=== PATIENT | male | born 1970 | race Caucasian/White ===

== ENCOUNTER 2024-05-09 10:41 | Outpatient (REF) | payer SELFPAY ==
[2024-05-09 09:50] LABS: ALT 113 U/L (16-63); AST 45 U/L (15-37); Albumin 3.3 g/dL (3.4-5.0); Alkaline Phosphatase 356 U/L (46-116); Anion Gap 6.8 mmol/L (3-11); BUN 12 mg/dL (7-18); CO2 32.2 mmol/L (21.0-32.0); CREATININE 0.6 mg/dL (0.70-1.30); Chloride 103 mmol/L (98-107); Estimated GFR 114.71 (mL/min/1.73m2); Glucose 88 mg/dL (74-106); Potassium 4.5 mmol/L (3.5-5.1); Sodium 142 mmol/L (136-145); Total Protein 6.8 g/dL (6.4-8.2)
== END 2024-05-09 10:42 | disposition home or self-care (01) ==
LOC: LBN 10:41
PROVIDERS: Visit Provider Family Medicine
DX: G12.21 Amyotrophic lateral sclerosis (principal); R79.89 Other specified abnormal findings of blood chemistry
CPT/HCPCS: 80053

== ENCOUNTER 2024-07-31 21:17 | Outpatient (REF) | payer SELFPAY ==
[2024-07-31 13:17] LABS: ALT 47 U/L (16-63); AST 28 U/L (15-37); Albumin 3.5 g/dL (3.4-5.0); Alkaline Phosphatase 202 U/L (46-116); Anion Gap 7.4 mmol/L (3-11); BUN 11 mg/dL (7-18); Bilirubin, Total 0.51 mg/dL (0.2-1.0); CO2 30.6 mmol/L (21.0-32.0); CREATININE 0.7 mg/dL (0.70-1.30); Calcium 9.4 mg/dL (8.5-10.1); Chloride 104 mmol/L (98-107); Glucose 87 mg/dL (74-106); Potassium 4.1 mmol/L (3.5-5.1); Sodium 142 mmol/L (136-145); Total Protein 6.7 g/dL (6.4-8.2)
== END 2024-07-31 21:18 | disposition home or self-care (01) ==
LOC: LBN 21:17
PROVIDERS: Visit Provider Family Medicine
DX: G12.21 Amyotrophic lateral sclerosis (principal)
CPT/HCPCS: 80053

== ENCOUNTER 2025-01-10 10:55 | Inpatient (IN) | payer OTHER, SELFPAY ==
[2025-01-10 13:05] VITALS: BP 131/78; PULSE 99; RESP 14; TEMP 36.7; O2SAT 99
--- NOTE | 2025-01-10 14:07 | W.PM.HP.N ---
Date of service: 01/10/25 Time of Service: 12:45 Assessment and Plan Assessment and plan (1) Bedbound: Status: Acute Assessment and plan: As of 01/09, asked him to stay in bed to offload pressure off of left buttock If OOB, needs to be moved by Tevin. For now, bedbound will make it easier for his skin to heal. (2) Nonverbal: Status: Chronic Assessment and plan: Very intelligent. Has some preformed phrases that he can play for new people to explain his illness/condition/preferences, etc. ALS has made it impossible for him to speak for at least 3 years now. Maybe longer. (3) Drooling: Status: Acute Assessment and plan: Chronic problem. Shirt gets wet. Has glycopyrollate ordered prn. (4) Anxiety: Status: Chronic Assessment and plan: Is on lexapro for both anxiety and depression. Tried to wean off but could not due to worsening mood. Mood usually pretty well controlled. (5) Pressure ulcer: Status: Acute Assessment and plan: Present for about 2-3 weeks. Family tried to treat it on their own at home. Sudden worsening on 01/08. With offloading of weight, may be able to heal on its own. If he had continued to sit at his computer for 9-10 hrs per day, he would be in severe trouble. (6) Hospice care: Status: Acute Assessment and plan: He is currently hear for respite but is hovering over symptom management. He looked better today than he looked yesterday. He is still at risk for sudden decompensation. Given that, I have asked for IV to be placed in case we need to administer IV abx, etc. Will check his CBCD to ensure that we are not approaching infection. (7) ALS (amyotrophic lateral sclerosis): Status: Acute Assessment and plan: Reason for his being on hospice. He has outlived his neurologists prognosis of 6 months by almost 2 years. Most people with his level of ALS burden within the next 6 months Continue hospice care. (8) Incontinent of feces: Status: Acute Assessment and plan: Risk of worsening infection. Usually stools q 3-4 days. Stooled yesterday. (9) Incontinent of urine: Status: Acute Assessment and plan: Has condom cath in place. PREFERS NO ESPINAL if possible. History of Present Illness History of Present Illness Chief Complaint: pressure ulcer rapid progression, ALS Narrative: Scooter has been on hospice for his ALS x 2.5 years. He came on hospice after being hospitalized in [place] for urosepsis and then spending 3 weeks in a snf. His Lisy Hollingsworth refused to have him come home after his acute rehab days were up. Instead of staying in a SNF on alf care, he chose to move into his mother and stepfather's home in [place]. His mom is in her early 80s and his step dad is almost 80. They are his primary caregivers, though they have an hour or two of help on most days in the am. Scooter continues to work in his [employer]. 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 He types very slowly, about 5 words per minute max but they keep him on. He loves to work and to provide for his children and estranged . Unfortunately, this means he spends hours per day in a computer chair. He has lost muscle and fat off of his buttocks. He started developing pressure areas about 4 weeks ago. He now has a distinct 1.2 cm oval stage 2 ulcer but as of this week he now has other larger areas of compromised skin that look as if they have deep tissue damage underneath. He tried various cushions and towels and other padding. But his skin continued to worsen. I saw him yesterday at home and was quite worried. I tried to convince him to come to the hospital then, but he wasn't ready to do so. He did agree to offload his weight from his left buttock, where the ulcer is and the skin appears most ominous, dusky and poorly perfused. Today, he looked a bit better. He was smiling (he did not smile yesterday). He looked less anxious. His brow was not furrowed. Review of Systems Narrative: no fevers or chills no cough or choking, takes nothing per mouth weight appears to be relatively stable though muscle mass is much less than it had been on admission --will get weight prior to d/c chronic drooling feeds with feeding tube, recently replaced by Dr Albert, general surgeon incontinent of urine and feces needs help with all ADLs cannot speak, does vocalize when upset no seizures does have legs in extension all the time despite high dose baclofen (rxed by his MD neurologist) pressure ulcer as noted dermatitis near site of ulcer history of psoriasis, not currently active was anxious prior to coming to hospital, pleasantly surprised by ambulance ride and admission process [facility] All Active Problems (Updated 01/10/25 @ 14:31 by Lisy Cabrera MD) Incontinent of urine (Acute) Incontinent of feces (Acute) Bedbound (Acute) Nonverbal (Chronic) due to ALS Drooling (Acute) Anxiety (Chronic) Pressure ulcer (Acute) Gastrostomy malfunction (Acute) Gastrostomy tube in place (Acute) Hospice care (Acute) ALS (amyotrophic lateral sclerosis) (Acute) Family History (Updated 01/10/25 @ 14:17 by Lisy Cabrera MD) Mother Osteoarthritis Son No problems noted. Daughter No problems noted. Social History (Updated 01/10/25 @ 14:21 by Lisy Cabrera MD) Smoking/Tobacco Use Status: Never Second Hand Exposure: No Smoking risk assessment performed?: Yes Alcohol Intake: former Drug use: Never Adopted: No Caregiver/Support person: Yes Household members: family Housing: house Number of Children: 2 number of grandchildren: 0 Communication Needs: Language Barriers Education Level: college Do you need help understanding health information?: Often Pets and animals: Yes Pets and animals: cat(s) Sexually active: No Do you think of yourself as: straight/heterosexual Current gender identity: male What is your relationship status?: How often do you talk on the phone with friends or family?: never How often do you get together with friends or relatives?: once per week Do you belong to any clubs or organized social groups?: no Panel score (0-1 are the most socially isolated patients): 0 What type of physical activity do you participate in: none and restricted ROM & activity Special erick needs: No Working smoke detector in home: Yes Fire extinguisher in home: Yes Do you feel safe at home: Yes Additional Social history: Lives with mother and stepfather. 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 Continues to work. Has 2 children, one son Sebastian graduated from college last year and works at same company where Scooter works, daughter Hope will graduate this year. Important to him that he helps provide for them. Meds Allergies and Home Medications Home Medications ?Medication ?Instructions ?Recorded ?Confirmed ?Type docusate sodium 100 mg capsule 100 mg PO TID PRN constipation #42 02/02/23 11/26/24 Rx (Colace) caps lorazepam 1 mg tablet 1 mg PO Q4H PRN anxiety, 05/18/23 11/26/24 Rx agitation, dyspnea #10 tabs morphine concentrate 100 mg/5 mL See Rx Instructions PO Q1H PRN 05/18/23 11/26/24 Rx (20 mg/mL) oral solution pain #30 mL polyethylene glycol 3350 17 17 g PO BID #510 grams 07/28/23 11/26/24 Rx gram/dose oral powder (Miralax) glycopyrrolate 1 mg/5 mL (0.2 1 mg (5 mL) feeding tube TID PRN 08/14/23 11/26/24 Rx mg/mL) oral solution excessive salivation #473 mL fluconazole 150 mg tablet 150 mg PO DAILY #3 tabs 01/15/24 11/26/24 Rx nystatin 100,000 unit/gram topical 1 applic topical QID PRN skin 08/16/24 11/26/24 Rx powder irritation #15 grams clotrimazole 1 % topical cream 1 applic topical TID PRN skin 09/21/24 11/26/24 Rx (Antifungal (clotrimazole)) irritation #45 grams hydrocortisone 2.5 % topical cream 1 applic topical BID PRN skin 09/21/24 11/26/24 Rx irritation #28 grams nirmatrelvir 300 mg (150 mg See Rx Instructions PO .COMPLEX 12/17/24 Rx x2)-ritonavir 100 mg tablet,dose #30 dose pk pack (Paxlovid) Allergy/Medication Comments:: No longer taking paxlovid. Had recent mild covid infection. Exam Narrative Exam Narrative: appears stated age or younger lying in bed, HOB elevated (cannot lie flat, due to breathing issues) wears glasses MMM, + drooling but not as much as usual, hearing intact neck no lad or jvd lungs moving little air, no obvious crackles or wheeze cv tachycardic to the low 100s (not unusual for him) abd soft, NT, ND + bs wnl, has g-tube in place with Y-connector ext legs in extension, fixed point, hands contracted, able to type with knuckles only neuro alert and oriented x 3, has capacity, able to make his own medical and other decisions, cannot speak, cannot move independently, does smile today, less able to control neck movement, harder to give a clear nod or shake of head , murky psych was anxious when seen at home yesterday, in good spirits today (first time out of house in almost 2.5 years) skin one circular area of stage 2 ulcer surrounded by dusky purple skin at risk, also with dermatitis in skin folds bilaterally gu has condom cath in place Results Labs 01/10/25 10:58 Labs: ordered cbcd in case he is brewing infection Time Spent Time spent with Patient: 55-74 minutes Time was spent: preparing to see the patient(eg.review tests), ordering medications,tests, procedures, referring, communicating with other health care mgr, counseling the patient and care coordination
[2025-01-10 14:19] LABS: Abs Immature Grans 0.03 10^3/uL (0.0-0.06); Absolute Basophil Count 0.05 10^3/uL (0.0-0.2); Absolute Eosinophil Count 0.04 10^3/uL (0.0-0.7); Absolute Lymphocyte Count 0.85 10^3/uL (1.2-3.4); Absolute Monocyte Count 0.66 10^3/uL (0.1-0.8); Basophils % 0.6 %; Eosinophils % 0.5 %; HCT 44.4 % (40.0-50.0); HGB 14.8 g/dL (13.5-17.5); Immature Grans % 0.4 %; Lymphocytes % 10.7 %; MCH 30.8 pg (27.0-33.0); MCHC 33.3 % (32.0-36.0); MCV 93 fL (80-95); MPV 11.6 fL (8.0-11.0); Monocytes % 8.3 %; Neutrophils % 79.5 %; Platelet Count 196 10^3/uL (130-400); RDW 13.2 % (11.8-14.1); RDW-SD 44.7 fL; WBC 7.93 10^3/uL (4.4-10.8)
--- NOTE | 2025-01-10 19:03 | W.PC.ACHO ---
Registration Status: Primary Language: Preferred Language: Most Recent Vital Signs Temperature 98.1 F 01/10/25 13:05 Temperature Source Temporal Artery Scan 01/10/25 13:05 Pulse 99 H 01/10/25 13:05 Pulse Rhythm Regular 01/10/25 13:05 Respiratory Rate 14 01/10/25 13:05 Respiratory Effort Normal, Non-Labored 01/10/25 13:05 Respiratory Depth Normal 01/10/25 13:05 Respiratory Pattern Normal 01/10/25 13:05 Blood Pressure 131/78 01/10/25 13:05 Pulse Oximetry 99 01/10/25 13:05 Oxygen Delivery Method Room Air 01/10/25 13:05 Oxygen Flow Rate 0 01/10/25 13:05 Pain Level 0 01/10/25 13:05 Active Medications Generic Name Dose Route Start Last Admin Trade Name Freq PRN Reason Stop Dose Admin Baclofen 40 mg 01/10/25 14:00 01/10/25 14:46 Baclofen 10 Mg Tab NG Not Given TID KODI Diet Orders Category Date Time Status Tube Feeding [DIET] Nutrition 01/10/25 Lunch Active Diagnostics 01/10/25 Range/Units 14:15 WBC 7.93 (4.4-10.8) 10^3/uL RBC 4.80 (4.36-5.78) 10^6/uL Hgb 14.8 (13.5-17.5) g/dL Hct 44.4 (40.0-50.0) % MCV 93 (80-95) fL MCH 30.8 (27.0-33.0) pg MCHC 33.3 (32.0-36.0) % RDW 13.2 (11.8-14.1) % Plt Count 196 (130-400) 10^3/uL MPV 11.6 H (8.0-11.0) fL Immature Gran % 0.4 % Neutrophils % 79.5 % Lymphocytes % 10.7 % Monocytes % 8.3 % Eosinophils % 0.5 % Basophils % 0.6 % Nucleated RBC % 0.0 (0.0-0.3) % Absolute Neutrophils 6.30 (1.2-6.7) 10^3/uL Absolute Lymphocytes 0.85 L (1.2-3.4) 10^3/uL Absolute Monocytes 0.66 (0.1-0.8) 10^3/uL Absolute Eosinophils 0.04 (0.0-0.7) 10^3/uL Absolute Basophils 0.05 (0.0-0.2) 10^3/uL Intake and Output - 24 Hour Total 01/10/25 thru 01/10/25 15:06 Output Total 550 Balance -550 Output: Urine 550 Other: Urine Color Yellow Urine Appearance Clear Falls Risk Assessment History of Falls No History 01/10/25 13:05 Contributing Factors Impairments,Incontinence 01/10/25 13:05 Tubes/Lines W/no contributing factors 01/10/25 13:05 Gait Evaluation W/any additional score 01/10/25 13:05 Cognition No cognitive impairment 01/10/25 13:05 Fall Total Score 36 01/10/25 13:05 Level of Risk Moderate Risk 01/10/25 13:05 Problems (Last Reviewed 01/10/25 @ 14:15 by Lisy Cabrera MD) Incontinent of urine (Acute) Incontinent of feces (Acute) Bedbound (Acute) Nonverbal (Chronic) Drooling (Acute) Anxiety (Chronic) Pressure ulcer (Acute) Hospice care (Acute) ALS (amyotrophic lateral sclerosis) (Acute) v v v v v v v v v Sending and/or Receiving Nurses: Please use comment section below to note any information pertinent to the patient hand-off not included above. Information / Comments: No hand off received, Direct admit from home Report received from:
[2025-01-10] MEDS: Senna TAB 1 TAB PO (21:27)
[2025-01-10] MEDS: Normal Saline Flush 10 ML SYR IVP (21:27)
[2025-01-10] MEDS: Baclofen 10 MG TAB 40 MG NG (21:27)
[2025-01-11] MEDS: Baclofen 10 MG TAB 40 MG NG ×3 (06:10→21:57)
[2025-01-11] MEDS: Loratidine 10 MG TAB NG (06:11)
[2025-01-11] MEDS: Escitalopram 20 MG TAB NG (06:11)
[2025-01-11] MEDS: Normal Saline Flush 10 ML SYR IVP ×3 (06:11→21:53)
[2025-01-11 07:55] VITALS: BP 110/59; PULSE 74; RESP 16; TEMP 36.3; O2SAT 93
[2025-01-11 13:44] VITALS: BP 112/65; PULSE 80; RESP 16; TEMP 36.1; O2SAT 97
[2025-01-11 20:07] VITALS: BP 127/66; PULSE 83; RESP 16; TEMP 36.8; O2SAT 96
[2025-01-11] MEDS: Senna TAB 1 TAB PO (21:53)
[2025-01-12 05:40] VITALS: BP 114/63; PULSE 60; RESP 16; TEMP 36.4; O2SAT 91
[2025-01-12] MEDS: Escitalopram 20 MG TAB NG (06:24)
[2025-01-12] MEDS: Loratidine 10 MG TAB NG (06:24)
[2025-01-12] MEDS: Baclofen 10 MG TAB 40 MG NG ×3 (06:37→21:52)
--- NOTE | 2025-01-12 09:12 | CMPROGNOTE_ITS ---
Date of service: 01/12/25 Time of Service: 09:12 Care Management Progress Note Progress Note Text Progress Note Text: Jagdish was resting in bed when CM met with him. He woke up and communicated with CM using yes/no answers. He has his phone set up in front of him for ease of communication, and can communicate using yes/no answers as well. Per report, he will be returning home to his mother and step father's house on , at the end of his respite period. He will transport via EMS. CM will continue to follow. Discharge Potential Discharge Needs: Other (coordinated return home with a resumption of hospice) Anticipated Barriers to Discharge: None Identified Patient/Family Education Needs: Review discharge instructions, discuss Ask Me Three Transportation: EMS Plan: Jagdish is at [facility] for hospice respite. He will return to his parent's home in [facility] after his five day respite. He will transport via EMS, and will follow up with hospice providers and his discharge plan of care. CM will continue to follow. Social Determinants of Health Screening Will the Patient Participate in the Screening?: Unable to obtain
[2025-01-12] MEDS: Normal Saline Flush 10 ML SYR IVP ×2 (10:14→21:53)
[2025-01-12 14:54] VITALS: BP 112/64; PULSE 72; RESP 16; TEMP 36.4; O2SAT 92
[2025-01-12] MEDS: Senna TAB 1 TAB PO (21:53)
[2025-01-12] MEDS: Miconazole 2% Topical Powder 85 GM BTL TP (21:54)
[2025-01-13] MEDS: Escitalopram 20 MG TAB NG (06:28)
[2025-01-13] MEDS: Loratidine 10 MG TAB NG (06:28)
[2025-01-13] MEDS: Baclofen 10 MG TAB 40 MG NG ×3 (06:28→21:17)
[2025-01-13 07:21] VITALS: BP 104/64; PULSE 64; RESP 13; TEMP 36.1; O2SAT 86
[2025-01-13 08:00] VITALS: O2SAT 95
--- NOTE | 2025-01-13 09:08 | PDOC.CMPRO ---
Date of service: 01/13/25 Time of Service: 09:08 Care Management Progress Note Progress Note Text Progress Note Text: Tyson is admitted to [facility] for Hospice Respite Care. He was lying in bed with his eyes closed when CM checked in on him. He appeared comfortable, CM did not wake him. No concerns at this time, per nursing. Per report, he will be returning home to his mother and step father's house on , at the end of his respite period. He will transport via EMS. CM will continue to follow. Discharge Anticipated Barriers to Discharge: Other (Here for Hospice Respite) Patient/Family Education Needs: Review discharge instructions, discuss Ask Me Three Transportation: EMS Plan: Jagdish is at [facility] for hospice respite. He will return to his parent's home in [facility] after his five day respite. He will transport via EMS, and will follow up with hospice providers and his discharge plan of care. CM will continue to follow. Social Determinants of Health Screening Will the Patient Participate in the Screening?: Unable to obtain
[2025-01-13] MEDS: Normal Saline Flush 10 ML SYR IVP ×2 (10:53→21:18)
--- NOTE | 2025-01-13 15:00 | PHA.REVIEW2 ---
Pharmacy Admission Review Admission Clinical Review Admission Pharmacy Review: Incontinent of urine (Acute) Incontinent of feces (Acute) Bedbound (Acute) Drooling (Acute) Pressure ulcer (Acute) Hospice care (Acute) ALS (amyotrophic lateral sclerosis) (Acute) No Known Allergies Allergy (Unverified 01/11/25 07:30) Resuscitation Status DNR/DNI Pharmacy Admission Review Renal Dosing Medications needing adjustments: Reviewed (No height listed in chart) Anticoagulation Anticoagulation: Hgb 14.8 g/dL (13.5-17.5) 01/10/25 14:15 Hct 44.4 % (40.0-50.0) 01/10/25 14:15 Plt Count 196 10^3/uL (130-400) 01/10/25 14:15 DVT Prophylaxis: N/A (hospice) Opiate Usage Evaluate Pain Scale/Pains Meds: Reviewed (morphine PO conc. 0.25 - 1ml q1h PRN - no doses given so far) Relevant Labs Electrolytes, C-Reactive P, ESR: N/A (hospice) Cardiac Review BP, HR, EF%: Reviewed (BP and HR WNL) QTc Review QTc: Reviewed (No EKG on file) IV to PO Switch IV Medications: Reviewed (lorazepam) Home Meds Home Med List reviewed: Reviewed Relevent Home Meds Not ordered & why?: hydrocortisone cream All other meds listed on home med list state patient reports not taking Current Meds Current Medication Order Review: Reviewed
[2025-01-13] MEDS: Senna TAB 1 TAB PO (21:17)
[2025-01-14] MEDS: Baclofen 10 MG TAB 40 MG NG ×3 (06:08→22:40)
[2025-01-14] MEDS: Escitalopram 20 MG TAB NG (06:09)
[2025-01-14] MEDS: Loratidine 10 MG TAB NG (06:09)
[2025-01-14 07:46] VITALS: BP 101/62; PULSE 65; RESP 16; TEMP 36.5; O2SAT 95
[2025-01-14] MEDS: Normal Saline Flush 10 ML SYR IVP ×2 (09:30→22:40)
--- NOTE | 2025-01-14 15:10 | CHAPLAIN ---
I visited with Jagdish prior to reading any notes, so I wasn't aware that he's not speaking and still working. He nodded when I spoke to him. I explained my role and offered support. I will continue to visit.
--- NOTE | 2025-01-14 19:04 | CMPROGNOTE_ITS ---
Date of service: 01/14/25 Time of Service: 19:05 Care Management Progress Note Progress Note Text Progress Note Text: Jagdish remains on hospice respite; his plan will be to return home to his mother and step father's home tomorrow, , 01/15/25, after completion of his five days of respite. He will transport via EMS. CM will continue to follow. Discharge Potential Discharge Needs: Other (coordinated return home with resumption of Hospice) Anticipated Barriers to Discharge: None Identified Patient/Family Education Needs: Review discharge instructions, discuss Ask Me Three Transportation: EMS Plan: Jagdish is at [facility] for hospice respite. He will return to his parent's home in [facility] after his five day respite. He will transport via EMS, and will follow up with hospice providers and his discharge plan of care. CM will continue to follow. Social Determinants of Health Screening Will the Patient Participate in the Screening?: Unable to obtain
[2025-01-14] MEDS: Senna TAB 1 TAB PO (22:40)
[2025-01-15] MEDS: Baclofen 10 MG TAB 40 MG NG (06:11)
[2025-01-15] MEDS: Loratidine 10 MG TAB NG (06:11)
[2025-01-15] MEDS: Escitalopram 20 MG TAB NG (06:11)
[2025-01-15] MEDS: Normal Saline Flush 10 ML SYR IVP (07:37)
[2025-01-15 08:37] VITALS: BP 107/58; PULSE 89; RESP 16; TEMP 37.1; O2SAT 95
--- NOTE | 2025-01-15 10:42 | DSE_ITS ---
Date of service: 01/15/25 Time of Service: 10:00 DS: Diagnosis Discharge Diagnosis (1) Bedbound: Status: Acute (2) Nonverbal: Status: Chronic (3) Drooling: Status: Acute (4) Anxiety: Status: Chronic (5) Pressure ulcer: Status: Acute (6) Hospice care: Status: Acute (7) ALS (amyotrophic lateral sclerosis): Status: Acute (8) Incontinent of feces: Status: Acute (9) Incontinent of urine: Status: Acute Discharge Plan Disposition Patient Disposition: Home W/Hospice Services Condition: Poor Discharge Details Reason For Visit: Pressure Ulcer, Rapid Progression, ALS Admit Date/Time: 01/10/25 10:55 Admit Provider: Mónica Cabrera Attending Provider: Mónica Cabrera Primary Care Provider: Mónica Cabrera Hospital Course Hospital Course: Attending Physician: Dr. Mónica Cabrera Primary Diagnosis: Amyotrophic Lateral Sclerosis Secondary Diagnoses: * Pressure Ulcer * Anxiety * Incontinence (Urine and Feces) * Drooling History of Present Illness: Scooter is a patient with a long-standing history of ALS, currently enrolled in hospice care. He has been on hospice for approximately 2.5 years following a hospitalization in [place] for urosepsis and subsequent rehab. He lives with his mother and stepfather in [place], who are his primary caregivers, with additional assistance for a few hours daily. 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 He spends extended periods sitting at a computer, contributing to the development of a pressure ulcer on his left buttock. Despite various at-home attempts to manage his pressure ulcer, the wound worsened, leading to hospitalization for further care and management. Review of Systems: * No fever, chills, cough, or choking. * Chronic drooling, managed with glycopyrrolate. * Weight stable, though muscle mass is significantly decreased. * Feeds with a feeding tube, recently replaced by Dr. Albert (general surgeon). * Incontinent of urine and feces; requires assistance with all ADLs. * Nonverbal, communicates using pre-formed phrases and vocalizations. * No seizures. * Pressure ulcer and surrounding dermatitis noted. * Anxiety, managed with Lexapro, well controlled at present. * No significant changes in mood since admission. * History of psoriasis (currently inactive). Exam: * General Appearance: Appears stated age or younger, lying in bed with head of bed elevated (cannot lie flat due to breathing issues). Wears glasses. * Mental Status: Alert and oriented to person, place, and time. Has capacity to make his own medical and other decisions. Cannot speak, but able to communicate through pre-formed phrases. * Neurological: Fixed legs in extension, with hands contracted; able to type with knuckles only. Neck movement less controlled, making it difficult to clearly nod or shake head. Smiles today, indicating positive mood. * Psychiatric: Smiling and appropriate * Hearing: Intact, no issues noted. * Oral and Respiratory: Mild drooling, Lungs moving little air, no obvious crackles or wheezes. * Cardiovascular: Tachycardic in the low 100s, which is typical for this patient. * Abdomen: Soft, non-tender, non-distended. Bowel sounds within normal limits. G-tube in place with Y-connector. * Neck: No lymphadenopathy or jugular venous distension * Skin: One circular stage 2 ulcer on left buttock, open area approximatley the size of a pencil eraser, surrounded by dusky purple skin at risk for further breakdown. Dermatitis present in skin folds bilaterally. * Genitourinary: Condom catheter in place. Assessment and Plan: * Bedbound: Plan: Patient instructed to stay in bed as of 01/09 to offload pressure from the left buttock. If out of bed, requires Tevin lift for mobility. Bed rest will assist with skin healing. * Nonverbal (due to ALS): Plan: Patient communicates using pre-formed phrases to express needs and preferences. ALS has impaired speech for over 3 years. Continue to monitor for signs of distress and ensure communication methods are accessible. * Drooling: Plan: Continue use of glycopyrrolate as needed for drooling. Encourage dry clothing changes and maintain oral care. * Anxiety: Plan: Continue Lexapro for anxiety and depression. Patient's mood is generally well-controlled. No further changes needed at this time. * Pressure Ulcer: Plan: Pressure ulcer on left buttock, worsening since 01/08. Continue to monitor and offload weight. If not improving, consider wound care consultations and advanced treatments. Family to assist with skin care at home. * Hospice Care: Plan: Patient currently receiving respite care with symptom management. Continue hospice services and monitor for any signs of deterioration. * Amyotrophic Lateral Sclerosis: Plan: Continue hospice care. ALS remains the primary cause of morbidity, with an extended prognosis beyond the original neurologist's estimate. Provide palliative care and symptom management as needed. * Incontinence of Feces: Plan: Monitor for risk of infection. Continue to manage with incontinence products and regular skin checks. * Incontinence of Urine: Plan: Continue use of condom catheter, as patient prefers this over Moise catheter. Family and Social History: Scooter is , but from his . He has two children, a son and a daughter. His mother and stepfather serve as primary caregivers. He has no history of smoking or drug use but is a former alcohol user. He is currently living with his elderly parents in [place] and continues to work remotely in a [employer]-related job despite physical limitations. Medications: * Lexapro: For anxiety and depression. * Glycopyrrolate: As needed for drooling. * Other medications as previously prescribed for ALS and symptom management. Follow-up: * Primary Care Physician: Follow-up in 1-2 weeks for continued management of ALS and pressure ulcer healing. * Hospice Team: Continue monitoring at home for symptom management. * Ui Developer: If pressure ulcer does not improve, referral for wound care. Discharge Instructions: * Maintain offloading pressure from affected areas. * Monitor for signs of infection and worsening of pressure ulcer. * Continue current medications as prescribed. * Follow up with hospice team as needed for symptom management. * Ensure proper incontinence care and skin protection Wound care orders: * TheraHoney and Optifoam Gentle: Apply TheraHoney and Optifoam Gentle dressing to the wound site daily and as needed for wound care * Change dressing daily and as needed based on the condition of the wound. Home Meds and New Rx's Prescriptions: No Action docusate sodium [Colace] 100 mg capsule 100 mg PO TID PRN (Reason: constipation) Qty: 42 0RF Rx Instructions: hospice patient morphine concentrate 100 mg/5 mL (20 mg/mL) solution See Rx Instructions PO Q1H MDD 120 mg PRN (Reason: pain) Qty: 30 0RF Rx Instructions: 0.25-1.0 ml orally every 1 hour PRN; HOSPICE lorazepam 1 mg tablet 1 mg PO Q4H PRN (Reason: anxiety, agitation, dyspnea) Qty: 10 5RF Rx Instructions: hospice polyethylene glycol 3350 [Miralax] 17 gram/dose powder 17 g PO BID Qty: 510 0RF glycopyrrolate 1 mg/5 mL (0.2 mg/mL) solution 1 mg feeding tube TID MDD 6 mg PRN (Reason: excessive salivation) Qty: 473 1RF Rx Instructions: hospice fluconazole 150 mg tablet 150 mg PO DAILY Qty: 3 1RF nystatin 100,000 unit/gram powder 1 applic topical QID PRN (Reason: skin irritation) Qty: 15 2RF Rx Instructions: hospice patient hydrocortisone 2.5 % cream 1 applic topical BID PRN (Reason: skin irritation) Qty: 28 0RF Rx Instructions: hospice patient clotrimazole [Antifungal (clotrimazole)] 1 % cream 1 applic topical TID PRN (Reason: skin irritation) Qty: 45 0RF Rx Instructions: hospice patient Discharge Instructions Instructions: Pressure sores Additional Instructions: * TheraHoney and Optifoam Gentle: Apply TheraHoney and Optifoam Gentle dressing to the wound site daily and as needed for wound care. * Change dressing daily and as needed based on the condition of the wound * Continue home medications - no changes * Contact Hospice for further concerns. Stand Alone Forms: Nursing Discharge Form Activity:: Activity as Tolerated Equipment/Supplies:: No Equipment Needed Diet:: As Tolerated Discharge Orders Discharge Orders: Discharge Order (Routine); Ordered 01/15/25 Ordered By: Katie Hawley DS: Summary Time Spent with Patient providing and/or coordinating discharge services: Less than 30 minutes Status at Discharge Functional status at discharge: bed bound Overall status at discharge: other Mental Status: mental status grossly normal Speech and Movement: other Mood: congruent mood Affect: normal affect Quality:SDOH Health Related Social Needs: No Data to Display Exam Psych Mental Status: mental status grossly normal Speech and Movement: other Mood: congruent mood Affect: normal affect DS: Data Vitals/I&O Vitals and I&O: Vital Signs Temperature 37.1 C 01/15/25 08:37 Temperature Source Temporal Artery Scan 01/15/25 08:37 Pulse 89 01/15/25 08:37 Pulse Rhythm Regular 01/10/25 13:05 Respiratory Rate 16 01/15/25 08:37 Respiratory Effort Normal, Non-Labored 01/10/25 13:05 Respiratory Depth Normal 01/10/25 13:05 Respiratory Pattern Normal 01/10/25 13:05 Blood Pressure 107/58 L 01/15/25 08:37 Pulse Oximetry 95 01/15/25 08:37 Oxygen Delivery Method Room Air 01/15/25 08:37 Oxygen Flow Rate 0 01/15/25 08:37 Pain Level 0 01/13/25 08:00 Comment Notifying RN on BP 01/15/25 08:37 Intake & Output 01/14/25 01/14/25 01/15/25 11:59 23:59 11:59 Output Total 750 / 2750 2000 / 2750 600 / 600 Balance -750 / -2750 -2000 / -2750 -600 / -600 Output: Urine 750 / 2750 2000 / 2750 600 / 600 Other: Urine Color Pale Yellow Yellow Yellow Urine Appearance Clear Clear Cloudy Sediment Comment brief dry at this time. pt refused for brief to be chnaged. PFSH All Active Problems (Updated 01/10/25 @ 14:31 by Mónica Cabrera MD) Incontinent of urine (Acute) Incontinent of feces (Acute) Bedbound (Acute) Nonverbal (Chronic) due to ALS Drooling (Acute) Anxiety (Chronic) Pressure ulcer (Acute) Gastrostomy malfunction (Acute) Gastrostomy tube in place (Acute) Hospice care (Acute) ALS (amyotrophic lateral sclerosis) (Acute) Family History (Updated 01/10/25 @ 14:17 by Mónica Cabrera MD) Mother Osteoarthritis Son No problems noted. Daughter No problems noted. Social History (Updated 01/10/25 @ 14:21 by Mónica Cabrera MD) Smoking/Tobacco Use Status: Never Second Hand Exposure: No Smoking risk assessment performed?: Yes Alcohol Intake: former Drug use: Never Adopted: No Caregiver/Support person: Yes Household members: family Housing: house Number of Children: 2 number of grandchildren: 0 Communication Needs: Language Barriers Education Level: college Do you need help understanding health information?: Often Pets and animals: Yes Pets and animals: cat(s) Sexually active: No Do you think of yourself as: straight/heterosexual Current gender identity: male What is your relationship status?: How often do you talk on the phone with friends or family?: never How often do you get together with friends or relatives?: once per week Do you belong to any clubs or organized social groups?: no Panel score (0-1 are the most socially isolated patients): 0 What type of physical activity do you participate in: none and restricted ROM & activity Special erick needs: No Working smoke detector in home: Yes Fire extinguisher in home: Yes Do you feel safe at home: Yes Additional Social history: Lives with mother and stepfather. 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 Continues to work. Has 2 children, one son Sebastian graduated from college last year and works at same company where Scooter works, daughter Fany will graduate this year. Important to him that he helps provide for them. Time Spent with Patient Time Spent with Patient: <45 minutes Time was spent: referring, communicating with other health customer care associate and care coordination
--- NOTE | 2025-01-15 12:17 | PDOC.CMDIS ---
Date of service: 01/15/25 Time of Service: 12:17 LACE Index Scoring Tool Questions: Length of Stay (in days): 4 - 6 Was the patient admitted via the E.D.?: No E.D. Visits: 0 Answers: Total Score: 4 Risk of Readmission: Low Risk Care Management Discharge Plan Reason for Hospitalization: hospice respite Discharge Plan: Jagdish returned home today after completing five days of hospice respite. He transported via EMS, coordinated by hospice. He will resume hospice supports at home, and will follow his discharge plan of care. Patient/Family Education Needs: Review discharge instructions and limitations, discussion of self care needs including ask me three. Services Needed at Discharge: Home Health Care Services (resume Hospice support) and Transportation (EMS) SDOH Health Related Social Needs: No Data to Display
== END 2025-01-15 11:07 | disposition hospice, home (50) | DRG 57 ==
LOC: MS 01-11 18:17 → RT 01-11 18:19 → MS 01-11 18:20
PROVIDERS: Admitting Provider Family Medicine; PCP Family Medicine; Visit Provider Family Medicine
DX: R47.01 Aphasia; Z75.5 Holiday relief care; G12.21 Amyotrophic lateral sclerosis; Z51.5 Encounter for palliative care; F41.9 Anxiety disorder, unspecified; Z74.01 Bed confinement status; R32 Unspecified urinary incontinence; R15.9 Full incontinence of feces; Z93.1 Gastrostomy status; Z79.899 Other long term (current) drug therapy; L89.322 Pressure ulcer of left buttock, stage 2
CPT/HCPCS: 00123; 85025

== ENCOUNTER 2025-06-12 10:37 | Inpatient (IN) | payer OTHER, SELFPAY ==
[2025-06-12 12:12] VITALS: BP 111/80; RESP 18; TEMP 36.7; O2SAT 94
--- NOTE | 2025-06-12 12:35 | HPE_ITS ---
Date of service: 06/12/25 Time of Service: 12:35 Assessment and Plan Assessment and plan (1) Incontinent of urine: Status: Acute (2) Incontinent of feces: Status: Acute (3) Bedbound: Status: Acute (4) Nonverbal: Status: Chronic (5) Drooling: Status: Acute (6) Anxiety: Status: Chronic (7) Pressure ulcer: Status: Acute Assessment and plan: nurses to treat as appropriate turn q 2 to prevent worsening of ulcers (8) Gastrostomy tube in place: Status: Acute Assessment and plan: use tube feeds as directed by family (9) Hospice care: Status: Acute Assessment and plan: here on respite stay, 5 nights (10) ALS (amyotrophic lateral sclerosis): Status: Acute Assessment and plan: reason he is on hospice History of Present Illness History of Present Illness Chief Complaint: hospice respite for pt with ALS Narrative: Scooter lives with his elderly mother, Mary and stepfather, Adrian, who are his primary caregivers. Scooter has been on hospice for almost 3 years (09/02). Sig and Mary are exhausted. This is Scooter's second respite stay since coming on hospice. His other stay was in January 2025. He was diagnosed with ALS about 5 years ago, when he lived in [place]. He had a bout of urosepsis in June 2022, was hospitalized and then sent to a rehab in [place]. At the end of his rehab stay, his refused to bring him home to their house. They are estranged now. His mother and stepfather offered to bring him to their home in [facility]. He has been here since. He can answer yes and no questions. He can use his phone to type slowly and deliberately. It is connected to a voice. He needs frequent readjustment of his position. He has had a pressure ulcer (or two) almost continuously since December 2024. He has little to no pain. His spasticity is severe. He is on high dose baclofen but still has very rigid limbs, particularly his legs. He is incontinent of urine and feces. At home, he sometimes uses a condom catheter. He does not like leung caths. Plan is for him to stay here through SundayJune 17 as a 5 night respite stay. Review of Systems Narrative: no fevers or chills no cough or choking, takes nothing per mouth weight appears to be relatively stable though muscle mass is much less than it had been on admission --will get weight prior to d/c chronic drooling feeds with feeding tube incontinent of urine and feces needs help with all ADLs cannot speak, does vocalize when upset no seizures does have legs in extension all the time despite high dose baclofen pressure ulcer as noted dermatitis near site of ulcer history of psoriasis, not currently active was anxious prior to coming to hospital, had panic attack this am, per stepdamirta last BM today PFSH All Active Problems Incontinent of urine (Acute) Incontinent of feces (Acute) Bedbound (Acute) Nonverbal (Chronic) due to ALS Drooling (Acute) Anxiety (Chronic) Pressure ulcer (Acute) Gastrostomy malfunction (Acute) Gastrostomy tube in place (Acute) Hospice care (Acute) ALS (amyotrophic lateral sclerosis) (Acute) Family History Mother Osteoarthritis Son No problems noted. Daughter No problems noted. Social History Smoking/Tobacco Use Status: Never Second Hand Exposure: No Smoking risk assessment performed?: Yes Alcohol Intake: former Drug use: Never Adopted: No Caregiver/Support person: Yes Household members: family Housing: house Number of Children: 2 number of grandchildren: 0 Communication Needs: Language Barriers Education Level: college Do you need help understanding health information?: Often Pets and animals: Yes Pets and animals: cat(s) Sexually active: No Do you think of yourself as: straight/heterosexual Current gender identity: male What is your relationship status?: How often do you talk on the phone with friends or family?: never How often do you get together with friends or relatives?: once per week Do you belong to any clubs or organized social groups?: no Panel score (0-1 are the most socially isolated patients): 0 What type of physical activity do you participate in: none and restricted ROM & activity Special erick needs: No Working smoke detector in home: Yes Fire extinguisher in home: Yes Do you feel safe at home: Yes Additional Social history: Lives with mother and stepfather. 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 Continues to work. Has 2 children, one son Sebastian graduated from college last year and works at same company where Scooter works, daughter Fany will graduate this year. Important to him that he helps provide for them. Meds Allergies and Home Medications Allergies Allergy/AdvReac Type Severity Reaction Status Date / Time No Known Allergies Allergy Unverified 01/11/25 07:30 Home Medications ?Medication ?Instructions ?Recorded ?Confirmed ?Type lorazepam 1 mg tablet 1 mg PO Q4H PRN anxiety, 06/0301/12/25 Rx agitation, dyspnea #10 tabs morphine concentrate 100 mg/5 mL See Rx Instructions P O Q1H PRN 05/18/23 01/12/25 Rx (20 mg/mL) oral solution pain #30 mL glycopyrrolate 1 mg/5 mL (0.2 1 mg (5 mL) feeding tube TID PRN 08/14/23 01/12/25 Rx mg/mL) oral solution excessive salivation #473 mL nystatin 100,000 unit/gram topical 1 applic topical QI D PRN skin 08/16/24 01/12/25 Rx powder irritation #15 grams betamethasone valerate 0.1 % 1 applic topical BID #45 grams 02/11/25 Rx topical ointment Allergy/Medication Comments:: also on baclofen 40 mg tid, loratadine 10 mg daily, lexapro 20 mg daily and senna daily Exam Narrative Exam Narrative: appears stated age or younger lying in bed, HOB elevated (cannot lie flat, due to breathing issues) feet also elevated wears glasses MMM, + drooling but not as much as usual, hearing intact neck no lad or jvd lungs moving little air, no obvious crackles or wheeze cv tachycardic to the low 100s (not unusual for him) abd soft, NT, ND + bs wnl, has g-tube in place ext legs in extension, fixed point, hands contracted, able to type with knuckles only neuro alert and oriented x 3, has capacity, able to make his own medical and other decisions, cannot speak, cannot move independently, does smile psych was anxious at home skin one circular area of stage 2 ulcer surrounded by dusky purple skin at risk, also with dermatitis in skin folds bilaterally Time Spent Time spent with Patient: 40-54 minutes Time was spent: preparing to see the patient(eg.review tests), referring, communicating with other health healthcare consulting manager, counseling the patient and care coordination
--- NOTE | 2025-06-12 13:46 | W.PC.ACHO1 ---
Registration Status: ADM IN Primary Language: Preferred Language: Most Recent Vital Signs Temperature 36.7 C 06/12/25 12:12 Temperature Source Tympanic 06/12/25 12:12 Respiratory Rate 18 06/12/25 12:12 Respiratory Effort Normal 06/12/25 12:12 Respiratory Depth Normal 06/12/25 12:12 Respiratory Pattern Normal 06/12/25 12:12 Blood Pressure 111/80 06/12/25 12:12 Blood Pressure Mean 90 06/12/25 12:12 Pulse Oximetry 94 06/12/25 12:12 Oxygen Delivery Method Room Air 06/12/25 12:12 Oxygen Flow Rate 0 06/12/25 12:12 Pain Level 0 06/12/25 12:12 Allergies No Known Allergies Allergy (Unverified 01/11/25 07:30) Diet Orders Category Date Time Status Tube Feeding [DIET] Nutrition 06/12/25 Lunch Active Falls Risk Assessment History of Falls Previous History 06/12/25 12:12 Tubes/Lines W/no contributing factors 06/12/25 12:12 Cognition No cognitive impairment 06/12/25 12:12 Fall Total Score 06/12/25 12:12 Level of Risk Standard/Low Risk 06/12/25 12:12 Problems (Last Reviewed 06/12/25 @ 12:45 by Lisy Cabrera MD) Incontinent of urine (Acute) Incontinent of feces (Acute) Bedbound (Acute) Nonverbal (Chronic) Drooling (Acute) Anxiety (Chronic) Pressure ulcer (Acute) Gastrostomy tube in place (Acute) Hospice care (Acute) ALS (amyotrophic lateral sclerosis) (Acute) v v v v v v v v v Sending and/or Receiving Nurses: Please use comment section below to note any information pertinent to the patient hand-off not included above. Information / Comments: Report received from: Patient was a direct admit - no report given. Patient was brought in by EMS.
[2025-06-12] MEDS: Baclofen 10 MG TAB 40 MG UD ×2 (15:29→20:18)
[2025-06-12] MEDS: Loratidine 10 MG TAB UD (18:30)
[2025-06-12] MEDS: Escitalopram 20 MG TAB JT (19:18)
[2025-06-12 20:24] VITALS: BP 111/56; PULSE 73; RESP 16; TEMP 36.6; O2SAT 96
[2025-06-13] MEDS: Baclofen 10 MG TAB 40 MG UD ×3 (09:01→19:45)
[2025-06-13] MEDS: Escitalopram 20 MG TAB JT (09:02)
[2025-06-13] MEDS: Loratidine 10 MG TAB UD (09:02)
--- NOTE | 2025-06-13 11:17 | PHA.REVIEW2 ---
Pharmacy Admission Review Admission Clinical Review Admission Pharmacy Review: Incontinent of urine (Acute) Incontinent of feces (Acute) Bedbound (Acute) Drooling (Acute) Pressure ulcer (Acute) Gastrostomy tube in place (Acute) Hospice care (Acute) ALS (amyotrophic lateral sclerosis) (Acute) No Known Allergies Allergy (Unverified 01/11/25 07:30) Resuscitation Status DNR/DNI Pharmacy Admission Review Renal Dosing Medications needing adjustments: N/A (no weight or height in chart - hospice patient) Anticoagulation DVT Prophylaxis: N/A Opiate Usage Evaluate Pain Scale/Pains Meds: Reviewed (morphine 2mg IV q4h PRN and morphine oral concentrate q1h PRN - no doses given) Relevant Labs Electrolytes, C-Reactive P, ESR: N/A Cardiac Review BP, HR, EF%: N/A QTc Review QTc: Reviewed (No EKG on file) IV to PO Switch IV Medications: Reviewed Home Meds Home Med List reviewed: Reviewed Current Meds Current Medication Order Review: Reviewed Comments: Hospice respite - discharge 06/17 (five days)
--- NOTE | 2025-06-13 16:46 | CMPROGNOTE_ITS ---
Date of service: 06/13/25 Time of Service: 16:46 Care Management Progress Note Progress Note Text Progress Note Text: Scooter is on hospice for ALS and was admitted for respite. He lives in [facility] with his parents who are his caregivers. He was when he was first diagnosed with ALS but his refused to allow him to come home from rehab. They are now estranged. Scooter requires total care and is incontinent of bowel and bladder. He has several pressure ulcers and requires frequent position changes. Per Dr. Cabrera, Scooter is able to use his phone to type slowly and it is connected to a voice. Scooter will remain hospitalized until Sunday06/17/25. Discharge Plan: Scooter will return home into the care of his parents after his 5 days of respite. He will follow up with his hospice team and transport via EMS. CM will follow. Social Determinants of Health Screening Social Determinants of health last assessed in clinic: 06/13/25 Will the Patient Participate in the Screening?: Yes Do you worry about having a steady place to live?: no Problems where you live: no known problems In the past 12 months, have you had to go without electric, gas, oil or water in your home?: no 1. Within the past 12 months, we worried whether our food would run out before we got money to buy more.: Never true 2. Within the past 12 months, the food we bought just didn't last and we didn't have money to get more.: Never true Has lack of transportation kept you from medical appointments or from doing things needed for daily living?: no Has anyone in your life made you feel unsafe or unsupported?: no How hard is it for you to pay for the very basics like food, housing, medical care, and heating? Would you say it is:: Not hard at all Do you want help finding or keeping work or a job?: I do not need or want help If for any reason you need help with day-to-day activities such as bathing, preparing meals, shopping, managing finances, etc., do you get the help you need?: I don?t need any help How often do you feel lonely or isolated from those around you?: Never Do you speak a language other than Filipino at home?: No Does the patient want assistance with any of the above?: No
[2025-06-13 19:29] VITALS: BP 105/62; PULSE 81; RESP 20; TEMP 36.7; O2SAT 95
[2025-06-14 07:07] VITALS: BP 102/61; PULSE 62; RESP 16; TEMP 36.4; O2SAT 97
[2025-06-14] MEDS: Escitalopram 20 MG TAB JT (08:14)
[2025-06-14] MEDS: Loratidine 10 MG TAB UD (08:14)
[2025-06-14] MEDS: Baclofen 10 MG TAB 40 MG UD ×3 (08:15→20:49)
[2025-06-14 19:34] VITALS: BP 104/61; PULSE 78; RESP 18; TEMP 36.8; O2SAT 93
[2025-06-15] MEDS: Baclofen 10 MG TAB 40 MG UD ×3 (08:17→19:57)
[2025-06-15] MEDS: Loratidine 10 MG TAB UD (08:17)
[2025-06-15] MEDS: Escitalopram 20 MG TAB JT (08:17)
--- NOTE | 2025-06-15 09:03 | PDOC.CMPRO ---
Date of service: 06/15/25 Time of Service: 09:03 Care Management Progress Note Progress Note Text Progress Note Text: Scooter is on hospice for ALS and was admitted for respite through Sunday06/17/25. He lives in [facility] with his parents who are his caregivers. He is nonverbal and uses his phone to communicate. Per report, cSooter requires total care and is incontinent of bowel and bladder. He has several pressure ulcers and requires frequent position changes. Scooter will remain hospitalized until . Discharge Anticipated Barriers to Discharge: None Identified Patient/Family Education Needs: Review discharge instructions, discuss Ask Me Three Transportation: EMS Plan: Scooter will return home into the care of his parents on Sunday after his 5 days of respite. He will follow up with his hospice team and transport via EMS. CM will follow. Social Determinants of Health Screening Social Determinants of health last assessed in clinic: 06/15/25 Will the Patient Participate in the Screening?: Yes Do you worry about having a steady place to live?: no Problems where you live: no known problems In the past 12 months, have you had to go without electric, gas, oil or water in your home?: no 1. Within the past 12 months, we worried whether our food would run out before we got money to buy more.: Never true 2. Within the past 12 months, the food we bought just didn't last and we didn't have money to get more.: Never true Has lack of transportation kept you from medical appointments or from doing things needed for daily living?: no Has anyone in your life made you feel unsafe or unsupported?: no How hard is it for you to pay for the very basics like food, housing, medical care, and heating? Would you say it is:: Not hard at all Do you want help finding or keeping work or a job?: I do not need or want help If for any reason you need help with day-to-day activities such as bathing, preparing meals, shopping, managing finances, etc., do you get the help you need?: I don?t need any help How often do you feel lonely or isolated from those around you?: Never Do you speak a language other than Romanian at home?: No Does the patient want assistance with any of the above?: No
[2025-06-16 01:34] VITALS: BP 106/69; PULSE 63; RESP 15; TEMP 36; O2SAT 96
[2025-06-16 07:17] VITALS: BP 99/65; PULSE 61; RESP 18; TEMP 36.4; O2SAT 98
--- NOTE | 2025-06-16 08:51 | PDOC.CMPRO ---
Date of service: 06/16/25 Time of Service: 08:51 Care Management Progress Note Progress Note Text Progress Note Text: Scooter was awake and in bed with the HOB elevated when CM met with him. He is nonverbal and uses his phone to communicate. Per pt, he is waiting for his meds and he is doing well. He is on hospice for ALS and is admitted for respite through Sunday06/17/25. He lives in [facility] with his parents who are his caregivers. Per report, Scooter requires total care and is incontinent of bowel and bladder. He has several pressure ulcers and requires frequent position changes. Discharge Potential Discharge Needs: Other (Follow up with Hospice ) Anticipated Barriers to Discharge: None Identified Patient/Family Education Needs: Review discharge instructions, discuss Ask Me Three Transportation: EMS Plan: Scooter will return home into the care of his parents on Sunday after his 5 days of respite. He will follow up with his hospice team and transport via EMS. CM will follow. Social Determinants of Health Screening Social Determinants of health last assessed in clinic: 06/16/25 Will the Patient Participate in the Screening?: Yes Do you worry about having a steady place to live?: no Problems where you live: no known problems In the past 12 months, have you had to go without electric, gas, oil or water in your home?: no 1. Within the past 12 months, we worried whether our food would run out before we got money to buy more.: Never true 2. Within the past 12 months, the food we bought just didn't last and we didn't have money to get more.: Never true Has lack of transportation kept you from medical appointments or from doing things needed for daily living?: no Has anyone in your life made you feel unsafe or unsupported?: no How hard is it for you to pay for the very basics like food, housing, medical care, and heating? Would you say it is:: Not hard at all Do you want help finding or keeping work or a job?: I do not need or want help If for any reason you need help with day-to-day activities such as bathing, preparing meals, shopping, managing finances, etc., do you get the help you need?: I don?t need any help How often do you feel lonely or isolated from those around you?: Never Do you speak a language other than [place] Islander at home?: No Does the patient want assistance with any of the above?: No
[2025-06-16] MEDS: Baclofen 10 MG TAB 40 MG UD ×3 (09:22→20:56)
[2025-06-16] MEDS: Escitalopram 20 MG TAB JT (09:22)
[2025-06-16] MEDS: Loratidine 10 MG TAB UD (09:22)
[2025-06-17] MEDS: Escitalopram 20 MG TAB JT (09:29)
[2025-06-17] MEDS: Loratidine 10 MG TAB UD (09:29)
[2025-06-17] MEDS: Baclofen 10 MG TAB 40 MG UD (09:29)
--- NOTE | 2025-06-17 10:27 | PDOC.CMDIS ---
Date of service: 06/17/25 Time of Service: 10:27 LACE Index Scoring Tool Questions: Length of Stay (in days): 4 - 6 Was the patient admitted via the E.D.?: No E.D. Visits: 0 Answers: Total Score: 4 Risk of Readmission: Low Risk Care Management Discharge Plan Reason for Hospitalization: Hospice Respite Discharge Plan: Jagdish is discharge home via EMS. Pt will resume Hospice services and farm or ranch animal caretaker supports after discharge. Patient/Family Education Needs: Review discharge instructions, Discuss ask me three. Services Needed at Discharge: Home Health Care Services (Resume Hospice) and Transportation (EMS, coordinated by family)
--- NOTE | 2025-06-17 12:22 | W.PM.DS.N ---
Date of service: 06/17/25 Time of Service: 12:23 DS: Diagnosis Discharge Diagnosis (1) Incontinent of urine: Status: Acute (2) Incontinent of feces: Status: Acute (3) Bedbound: Status: Acute (4) Nonverbal: Status: Chronic (5) Drooling: Status: Acute (6) Anxiety: Status: Chronic (7) Pressure ulcer: Status: Acute (8) Gastrostomy tube in place: Status: Acute (9) Hospice care: Status: Acute (10) ALS (amyotrophic lateral sclerosis): Status: Acute Discharge Plan Disposition Patient Disposition: Home W/Hospice Services Condition: Stable Discharge Details Reason For Visit: ALS,Hospice Respite Admit Date/Time: 06/12/25 10:37 Admit Provider: Lisy Cabrera Attending Provider: Lisy Cabrera Primary Care Provider: Lisy Cabrera Hospital Course Hospital Course: Scooter is a 54 year old man who is on hospice for ALS. He has been on hospice for almost 3 years (08/2022). He lives with his elderly mother, Mary and stepfather, Adrian, who are his primary caregivers. Adrian and Mary were exhausted and a hospice respite stay was offered to them. This is Scooter's second respite stay since coming on hospice. His other stay was in January 2025. He was diagnosed with ALS about 5 years ago, when he lived in [place]. He was admitted to hospice respite at [facility] on 06/12. He has had pressure ulcers on his sacrum for several months. These were managed by nursing while he was here. Nursing provided all care to him while he was here on respite including frequent position changes, incontinent care and personal care. His stepfather, Adrian is present today. An ambulance transfer has been arranged. He will return back home today and continue with hospice services. Adrian feels ready to take him home. He denies any needs at this time. He is encouraged to call hospice if they need anything upon his return home. Home Meds and New Rx's Prescriptions: New acetaminophen 325 mg Tablet 650 mg UD Q4H PRN PRNQty: 0 0RF acetaminophen 650 mg Suppository 650 mg AL Q6H PRN PRNQty: 0 0RF baclofen 10 mg Tablet 40 mg UD TID Qty: 0 0RF bisacodyl 10 mg Suppository 10 mg AL BID PRN PRNQty: 0 0RF scopolamine base 1 mg over 3 days Patch 3 Day 1 mg transdermal Q72H PRN (Reason: secretions) Qty: 0 0RF loratadine 10 mg Tablet 10 mg UD DAILY Qty: 0 0RF escitalopram oxalate 20 mg Tablet 20 mg J-tube DAILY Qty: 0 0RF Continued morphine concentrate 100 mg/5 mL (20 mg/mL) solution See Rx Instructions PO Q1H MDD 120 mg PRN (Reason: pain) Qty: 30 0RF Rx Instructions: 0.25-1.0 ml orally every 1 hour PRN; HOSPICE lorazepam 1 mg tablet 1 mg PO Q4H PRN (Reason: anxiety, agitation, dyspnea) Qty: 10 5RF Rx Instructions: hospice glycopyrrolate 1 mg/5 mL (0.2 mg/mL) solution 1 mg feeding tube TID MDD 6 mg PRN (Reason: excessive salivation) Qty: 473 1RF Rx Instructions: hospice nystatin 100,000 unit/gram powder 1 applic topical QID PRN (Reason: skin irritation) Qty: 15 2RF Rx Instructions: hospice patient betamethasone valerate 0.1 % ointment 1 applic topical BID Qty: 45 4RF Rx Instructions: apply 1 inch to affected area/psoriasis BID Discharge Instructions Instructions: Amyotrophic lateral sclerosis (ALS) Additional Instructions: Call hospice with any questions or concerns! Activity:: Activity as Tolerated Equipment/Supplies:: No Equipment Needed Diet:: As Tolerated Discharge Orders Discharge Orders: Discharge Order (Routine); Ordered 06/17/25 Ordered By: Katt Mathis DS: Summary Time Spent with Patient providing and/or coordinating discharge services: Greater than 30 minutes Status at Discharge Functional status at discharge: bed bound Overall status at discharge: patient is back to baseline Mental Status: mental status grossly normal and other (appears calm, smiling frequently) Speech and Movement: other (Unable to speak, at baseline, r/t ALS) Mood: other (appears calm, smiling frequently) Affect: normal affect Exam Narrative Exam Narrative: appears stated age lying in bed, HOB elevated (cannot lie flat, due to breathing issues) wears glasses MMM, + drooling but not as much as usual, hearing intact neck no lad or jvd Respirations appear even and unlabored abd soft, NT, ND + bs wnl, has g-tube in place ext legs in extension, fixed point, hands contracted, able to type with knuckles only neuro alert, cannot speak, cannot move independently, smiling frequently psych appears calm Psych Mental Status: mental status grossly normal and other (appears calm, smiling frequently) Speech and Movement: other (Unable to speak, at baseline, r/t ALS) Mood: other (appears calm, smiling frequently) Affect: normal affect DS: Data Vitals/I&O Vitals and I&O: Vital Signs Temperature 36.4 C L 06/16/25 07:17 Temperature Source Temporal Artery Scan 06/16/25 01:34 Pulse 61 06/16/25 07:17 Respiratory Rate 18 06/16/25 07:17 Respiratory Effort Normal 06/12/25 12:12 Respiratory Depth Normal 06/12/25 12:12 Respiratory Pattern Normal 06/12/25 12:12 Blood Pressure 99/65 L 06/16/25 07:17 Blood Pressure Mean 76 06/16/25 07:17 Pulse Oximetry 98 06/16/25 07:17 Oxygen Delivery Method Room Air 06/16/25 07:17 Oxygen Flow Rate 0 06/16/25 07:17 Pain Level 0 06/17/25 10:33 Comment RN notified 06/16/25 07:17 Intake & Output 06/16/25 06/17/25 06/17/25 23:59 11:59 23:59 Output Total 0 / 0 Balance 0 / 0 Output: Output, Residual 0 / 0 Other: Urine Color Yellow Urine Odor Normal Comment incontinent pt is dry of urine and stool Stool Size Small Stool Characteristics Soft Brown PFSH All Active Problems Incontinent of urine (Acute) Incontinent of feces (Acute) Bedbound (Acute) Nonverbal (Chronic) due to ALS Drooling (Acute) Anxiety (Chronic) Pressure ulcer (Acute) Gastrostomy malfunction (Acute) Gastrostomy tube in place (Acute) Hospice care (Acute) ALS (amyotrophic lateral sclerosis) (Acute) Family History Mother Osteoarthritis Son No problems noted. Daughter No problems noted. Social History Smoking/Tobacco Use Status: Never Second Hand Exposure: No Smoking risk assessment performed?: Yes Alcohol Intake: former Drug use: Never Adopted: No Caregiver/Support person: Yes Household members: family Housing: house Number of Children: 2 number of grandchildren: 0 Communication Needs: Language Barriers Education Level: college Do you need help understanding health information?: Often Pets and animals: Yes Pets and animals: cat(s) Sexually active: No Do you think of yourself as: straight/heterosexual Current gender identity: male What is your relationship status?: How often do you talk on the phone with friends or family?: never How often do you get together with friends or relatives?: once per week Do you belong to any clubs or organized social groups?: no Panel score (0-1 are the most socially isolated patients): 0 What type of physical activity do you participate in: none and restricted ROM & activity Special erick needs: No Working smoke detector in home: Yes Fire extinguisher in home: Yes Do you feel safe at home: Yes Do you feel safe in your relationship?: Yes Additional Social history: Lives with mother and stepfather. 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 Continues to work. Has 2 children, one son Sebastian graduated from college last year and works at same company where Scooter works, daughter Fany will graduate this year. Important to him that he helps provide for them. Time Spent with Patient Time Spent with Patient: <45 minutes Time was spent: preparing to see the patient(eg.review tests), referring, communicating with other health intensive care specialist, counseling the patient and care coordination
== END 2025-06-17 13:40 | disposition hospice, home (50) | DRG 57 ==
PROVIDERS: Admitting Provider Family Medicine; PCP Family Medicine; Visit Provider Family Medicine
DX: G12.21 Amyotrophic lateral sclerosis (principal); R47.01 Aphasia; Z51.5 Encounter for palliative care; Z75.5 Holiday relief care; R15.9 Full incontinence of feces; Z74.01 Bed confinement status; K11.7 Disturbances of salivary secretion; F41.9 Anxiety disorder, unspecified; R32 Unspecified urinary incontinence; Z93.1 Gastrostomy status; L89.152 Pressure ulcer of sacral region, stage 2; L89.322 Pressure ulcer of left buttock, stage 2; L89.312 Pressure ulcer of right buttock, stage 2
CPT/HCPCS: 00123

== ENCOUNTER 2025-08-28 10:09 | Inpatient (IN) | payer OTHER, SELFPAY ==
--- NOTE | 2025-08-28 13:17 | HPE_ITS ---
Date of service: 08/28/25 Time of Service: 13:17 Assessment and Plan Assessment and plan (1) Incontinent of feces: Status: Acute (2) Incontinent of urine: Status: Acute (3) Bedbound: Status: Acute (4) Nonverbal: Status: Chronic (5) Drooling: Status: Acute (6) Anxiety: Status: Chronic (7) Pressure ulcer: Status: Acute (8) Gastrostomy tube in place: Status: Acute (9) Hospice care: Status: Acute (10) ALS (amyotrophic lateral sclerosis): Status: Acute Assessment and plan: Plan is for Katt Mathis NP to discharge Scooter home via ambulance on the afternoon of 08/28. He needs to use [facility] due to his insurance requirements. History of Present Illness History of Present Illness Chief Complaint: respite for hospice patient with ALS Narrative: Scooter is a 54 yo man who has been on hospice for 3 years for end-stage ALS. He is here for a hospice respite stay His mother and stepfather, both elderly, are his caregivers at home. They are exhausted. Scooter will be here for 5 nights, with planned discharge the afternoon of 09/02. Scooter has a chronic pressure ulcer, which has been on his left buttock since December 2024. It has never completely healed. He is tube fed with 4 boxes of Jevity 1.5 per day given over an 8 hour gravity feed. He also receives 5 separate amounts of free water, each of 450 ccs. He has a clear and strict schedule for his feeds and his medications. He has clear wound care instructions as well. He is non verbal. He communicates by typing with one knuckle. He is immobile. He does not have a trache. He is incontinent of both urine and feces. He asked that he be allowed to sleep undisturbed overnight. He does not want q 2 hour repositioning during night hours. Review of Systems Narrative: drools excessively--does not want scop patch, will use glycopyrrolate if needed incontinent of feces--last BM 08/27 usually has BM q 3-4 days incontinent of urine--prefers condom cath if absolutely necessary, does not want ESPINAL chronic pressure ulcer--despite having open wound rarely if ever takes tylenol for pain, prefers less medication if possible. On previous respite admissions, his skin improved as he was not sitting in his computer work chair. He does have no control over his lower ext. PFSH All Active Problems Incontinent of urine (Acute) Incontinent of feces (Acute) Bedbound (Acute) Nonverbal (Chronic) due to ALS Drooling (Acute) Anxiety (Chronic) Pressure ulcer (Acute) Gastrostomy tube in place (Acute) Hospice care (Acute) ALS (amyotrophic lateral sclerosis) (Acute) Family History Mother Osteoarthritis Son No problems noted. Daughter No problems noted. Social History (Updated 08/28/25 @ 13:22 by Lisy Cabrera MD) Smoking/Tobacco Use Status: Never Second Hand Exposure: No Smoking risk assessment performed?: Yes Alcohol Intake: former Drug use: Never Adopted: No Caregiver/Support person: Yes Household members: family Housing: house Number of Children: 2 number of grandchildren: 0 Communication Needs: Language Barriers Education Level: college Do you need help understanding health information?: Often Pets and animals: Yes Pets and animals: cat(s) Sexually active: No Do you think of yourself as: straight/heterosexual Current gender identity: male What is your relationship status?: How often do you talk on the phone with friends or family?: never How often do you get together with friends or relatives?: once per week Do you belong to any clubs or organized social groups?: no Panel score (0-1 are the most socially isolated patients): 0 What type of physical activity do you participate in: none and restricted ROM & activity Special erick needs: No Working smoke detector in home: Yes Fire extinguisher in home: Yes Do you feel safe at home: Yes Do you feel safe in your relationship?: Yes Additional Social history: Lives with mother and stepfather. 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 Continues to work. Has 2 children, one son Sebastian graduated from college last year and works at same company where Scooter works, daughter Fany graduated this year. Important to him that he helps provide for them. Meds Allergies and Home Medications Allergies Allergy/AdvReac Type Severity Reaction Status Date / Time No Known Allergies Allergy Unverified 01/11/25 07:30 Home Medications ?Medication ?Instructions ?Recorded ?Confirmed ?Type lorazepam 1 mg tablet 1 mg PO Q4H PRN anxiety, 06/0306/14/25 Rx agitation, dyspnea #10 tabs morphine concentrate 100 mg/5 mL See Rx Instructions P O Q1H PRN 05/18/23 06/14/25 Rx (20 mg/mL) oral solution pain #30 mL glycopyrrolate 1 mg/5 mL (0.2 1 mg (5 mL) feeding tube TID PRN 08/14/23 06/14/25 Rx mg/mL) oral solution excessive salivation #473 mL nystatin 100,000 unit/gram topical 1 applic topical QI D PRN skin 08/16/24 06/14/25 Rx powder irritation #15 grams betamethasone valerate 0.1 % 1 applic topical BID #45 grams 02/11/25 06/14/25 Rx topical ointment acetaminophen 325 mg tablet 650 mg (2 x 325 mg) UD Q4H PRN PRN 06/17/25 Rx #0 tabs acetaminophen 650 mg rectal 650 mg NC Q6H PRN PRN #0 e a 06/17/25 Rx suppository baclofen 10 mg tablet 40 mg (4 x 10 mg) UD TID #0 tabs 06/17/25 Rx bisacodyl 10 mg rectal suppository 10 mg NC BID PRN NC N #0 ea 06/17/25 Rx escitalopram oxalate 20 mg tablet 20 mg J-tube DAILY # 0 tabs 06/17/25 Rx loratadine 10 mg tablet 10 mg UD DAILY #0 tabs 06/17 Rx scopolamine base 1 mg over 3 days 1 mg transdermal Q72 H PRN 06/17/25 Rx transdermal patch secretions #0 ea Exam Narrative Exam Narrative: appears stated age, bearded, wears glasses eyes anicteric heent drools copiously hearing intact neck no lad or jvd lungs ctab in anterior rodriguez, did not listen to posterior lung rodriguez cv regular normal rate abd feeding tube intact, no redness or prurulence around ext no cyanosis or edema neuro severely compromised due to his ALS, slow manager portable, he is cognitively intact and prefers questions be addressed to him skin I did not examine his wound on admission, new dressing applied yesterday, Scooter preferred leaving bandage intact gu wearing incontinence pants at this time psych tends to be rigid in his thinking and preferences, partly due to life long personality and partly due to his ALS psych effects Time Spent Time spent with Patient: 40-54 minutes Time was spent: ordering medications,tests, procedures, referring, communicating with other health geriatric personal care aide, counseling the patient and care coordination
--- NOTE | 2025-08-28 13:39 | PHA.REVIEW2 ---
Pharmacy Admission Review Admission Clinical Review Admission Pharmacy Review: Incontinent of urine (Acute) Incontinent of feces (Acute) Bedbound (Acute) Drooling (Acute) Pressure ulcer (Acute) Gastrostomy tube in place (Acute) Hospice care (Acute) ALS (amyotrophic lateral sclerosis) (Acute) No Known Allergies Allergy (Unverified 01/11/25 07:30) Resuscitation Status DNR/DNI Comments Comments/Follow Ups: hospice respite Pharmacy Admission Review Renal Dosing Medications needing adjustments: N/A Anticoagulation DVT Prophylaxis: N/A Opiate Usage Evaluate Pain Scale/Pains Meds: Reviewed (morphine oral concentrate 5-20mg q1h PRN - no doses given so far) Scheduled Bowel Reg ordered if on Opiates?: Yes (Senna at HS) Relevant Labs Electrolytes, C-Reactive P, ESR: Reviewed (No labs) Cardiac Review BP, HR, EF%: Reviewed (No VS charted at this time) QTc Review QTc: Reviewed (No EKG on file) IV to PO Switch IV Medications: Reviewed (Feeding tube) Home Meds Home Med List reviewed: Reviewed Relevent Home Meds Not ordered & why?: betamethasone ointment Current Meds Current Medication Order Review: Reviewed Comments Comments/Follow Ups: hospice respite
[2025-08-28] MEDS: Loratidine 10 MG TAB UD (14:17)
[2025-08-28] MEDS: Polyethylene Glycol 3350 17 GM PACKET UD (14:18)
[2025-08-28] MEDS: Baclofen 10 MG TAB 40 MG UD ×2 (14:18→21:06)
[2025-08-28] MEDS: Escitalopram 20 MG TAB JT (14:18)
--- NOTE | 2025-08-28 15:58 | CMPROGNOTE_ITS ---
Date of service: 08/28/25 Time of Service: 15:58 Care Management Progress Note Progress Note Text Progress Note Text: Scooter is on hospice for ALS and is admitted for 5 days of respite though 09/02/25. He lives in [facility] with his parents who are his caregivers. Patient will discharge home with resumption of Hospice and caregiver supports. He will transport via EMS. Discharge Potential Discharge Needs: Other (Follow up with Hospice providers) Patient/Family Education Needs: Review discharge instructions, discuss Ask Me Three Transportation: EMS Plan: Scooter will return home into the care of his parents on Sunday after his 5 days of respite. He will follow up with his hospice team and transport via EMS. CM will follow. Social Determinants of Health Screening Will the Patient Participate in the Screening?: Declined to provide
[2025-08-28] MEDS: Senna TAB 1 TAB UD (21:06)
[2025-08-29] MEDS: Baclofen 10 MG TAB 40 MG UD ×3 (07:24→20:51)
[2025-08-29] MEDS: Escitalopram 20 MG TAB JT (13:59)
[2025-08-29] MEDS: Loratidine 10 MG TAB UD (14:00)
[2025-08-29] MEDS: Senna TAB 1 TAB UD (20:51)
[2025-08-30] MEDS: Baclofen 10 MG TAB 40 MG UD ×3 (06:02→20:32)
[2025-08-30] MEDS: Loratidine 10 MG TAB UD (13:56)
[2025-08-30] MEDS: Escitalopram 20 MG TAB JT (13:56)
[2025-08-30] MEDS: Polyethylene Glycol 3350 17 GM PACKET UD (15:01)
--- NOTE | 2025-08-30 16:24 | NUR.NOTE ---
Nursing Note: This nurse and SPRING MACHINE OPERATOR (Pam Bond) went in to change patient as he had a wet brief. The patient refused to let us change his brief and states that we are using to many briefs. This nurse offered to use hospital briefs and patient declined. This nurse educated the patient on increased risk of skin breakdown from being in a wet brief. The patient demonstrated his understanding and still refused to let us change him. He states he gets changed at 0700, 1300, and 2000). This nurse educated the patient that we would still be checking on him and offering to change his brief during the shift. This nurse further instructed the patient to call staff if he felt like he needed to be changed sooner, patient demonstrated understanding.
[2025-08-30] MEDS: Senna TAB 1 TAB UD (20:32)
[2025-08-31] MEDS: Baclofen 10 MG TAB 40 MG UD ×3 (05:57→21:11)
[2025-08-31 07:22] VITALS: BP 103/61; PULSE 65; RESP 17; TEMP 36.5; O2SAT 96
--- NOTE | 2025-08-31 08:24 | PDOC.CMPRO ---
Date of service: 08/31/25 Time of Service: 08:24 Care Management Progress Note Progress Note Text Progress Note Text: Scooter was awake and lying in bed when CM met with him. His RN was present, and was administering medications via his feeding tube while being observed by nursing students. Isabel appears to be pleased about the teaching opportunity and smiled throughout the interaction. He is currently on Hospice services for ALS and admitted to [facility] for 5 days of Hospice Respite, through 09/02/25. He resides in [facility] with his parents, whom are also his primary caregivers. Scooter will return home with resumption of hospice services and caregiver supports. He will transport via EMS (coordinated by hospice.) CM will follow and provide support as needed. Discharge Anticipated Barriers to Discharge: None Identified Patient/Family Education Needs: Review discharge instructions, discuss Ask Me Three Transportation: EMS Plan: Scooter will return home in c/o his parents on 09/02/25, following completion of his 5 day respite stay. He will resume services with his hospice team upon discharge and will transport home via EMS. CM will continue to follow. Social Determinants of Health Screening Will the Patient Participate in the Screening?: Declined to provide In the past 12 months, have you had to go without electric, gas, oil or water in your home?: no Has lack of transportation kept you from medical appointments or from doing things needed for daily living?: no Has anyone in your life made you feel unsafe or unsupported?: no Do you want help finding or keeping work or a job?: I do not need or want help If for any reason you need help with day-to-day activities such as bathing, preparing meals, shopping, managing finances, etc., do you get the help you need?: I don?t need any help How often do you feel lonely or isolated from those around you?: Never Do you speak a language other than Kinyarwanda at home?: No Comments: speaks with cellphone, non verbal
[2025-08-31] MEDS: Escitalopram 20 MG TAB JT (13:33)
[2025-08-31] MEDS: Loratidine 10 MG TAB UD (13:33)
[2025-08-31] MEDS: Polyethylene Glycol 3350 17 GM PACKET UD (13:53)
--- NOTE | 2025-08-31 15:27 | W.NUTRFU ---
Date of service: 08/31/25 Time of Service: 15:27 Nutrition Note NOTE: reviewed pt chart - here for 5 day hospice respite and will discharge home with his parents as caregivers on the . Mr Cid continues his home regimen of 4 cartons Jevity 1.5 daily via gravity bag/j-tube. No alternate or additional nutrition intervention planned at this time. Time Spent in Nutritional Counseling and Treatment: 5 min
[2025-08-31] MEDS: Senna TAB 1 TAB UD (21:11)
[2025-09-01] MEDS: Baclofen 10 MG TAB 40 MG UD ×3 (05:29→21:12)
--- NOTE | 2025-09-01 10:20 | CMPROGNOTE_ITS ---
Date of service: 09/01/25 Time of Service: 10:20 Care Management Progress Note Progress Note Text Progress Note Text: cSooter was sitting up in bed, watching [place] Werewolf in [place], when CM met with him today. Scooter was very pleasant, and able to communicate through eye contact and an iphone that speaks. CM arrived just as the main character was turning into a werewolf for the first time. CM and Scooter watched this scene, and both enjoyed it. Scooter was able to convey that he likes scary movies, and that he is watching a marathon today. CM promised to be back to catch some more scenes later in the day. Scooter stated that he is good and had no needs at this time. Discharge Potential Discharge Needs: Other (f/u with hospice provider) Anticipated Barriers to Discharge: None Identified (on Hospice Respite through 09/02.) Patient/Family Education Needs: Review discharge instructions, discuss Ask Me Three Transportation: EMS Plan: Scooter will return home in c/o his parents on 09/02/25, following completion of his 5 day respite stay. He will resume services with his hospice team upon discharge and will transport home via EMS. CM will continue to follow. Social Determinants of Health Screening Will the Patient Participate in the Screening?: Declined to provide In the past 12 months, have you had to go without electric, gas, oil or water in your home?: no Has lack of transportation kept you from medical appointments or from doing things needed for daily living?: no Has anyone in your life made you feel unsafe or unsupported?: no Do you want help finding or keeping work or a job?: I do not need or want help If for any reason you need help with day-to-day activities such as bathing, preparing meals, shopping, managing finances, etc., do you get the help you need?: I don?t need any help How often do you feel lonely or isolated from those around you?: Never Do you speak a language other than Tunisian at home?: No Comments: speaks with cellphone, non verbal
[2025-09-01] MEDS: Escitalopram 20 MG TAB JT (13:37)
[2025-09-01] MEDS: Loratidine 10 MG TAB UD (13:38)
[2025-09-01] MEDS: Polyethylene Glycol 3350 17 GM PACKET UD (13:41)
[2025-09-01] MEDS: Senna TAB 1 TAB UD (21:13)
[2025-09-02] MEDS: Baclofen 10 MG TAB 40 MG UD ×2 (06:18→13:29)
--- NOTE | 2025-09-02 09:13 | CMDISCH_ITS ---
Date of service: 09/02/25 Time of Service: 09:13 LACE Index Scoring Tool Questions: Length of Stay (in days): 4 - 6 Was the patient admitted via the E.D.?: No E.D. Visits: 0 Answers: Total Score: 4 Risk of Readmission: Low Risk Care Management Discharge Plan Reason for Hospitalization: Hospice Respite Discharge Plan: Jagdish is discharge home via EMS. Pt will resume Hospice services and residential child care counselor supports after discharge. Patient/Family Education Needs: Review discharge instructions, Discuss ask me three. Services Needed at Discharge: Home Health Care Services (Resume Hospice) and Transportation (EMS, coordinated by Hospice)
--- NOTE | 2025-09-02 13:02 | DSE_ITS ---
Date of service: 09/02/25 Time of Service: 13:07 DS: Diagnosis Discharge Diagnosis (1) Incontinent of feces: Status: Acute (2) Incontinent of urine: Status: Acute (3) Bedbound: Status: Acute (4) Nonverbal: Status: Chronic (5) Drooling: Status: Acute (6) Anxiety: Status: Chronic (7) Pressure ulcer: Status: Acute (8) Gastrostomy tube in place: Status: Acute (9) Hospice care: Status: Acute (10) ALS (amyotrophic lateral sclerosis): Status: Acute Discharge Plan Disposition Patient Disposition: Home W/Hospice Services Condition: Stable Discharge Details Reason For Visit: Hospice Respite for pt with ALS Admit Date/Time: 08/28/25 10:09 Admit Provider: Lisy Cabrera Attending Provider: Lisy Cabrera Primary Care Provider: Lisy Cabrera Hospital Course Hospital Course: Scooter is a 54 yo man who has been on hospice for 3 years for end-stage ALS. He was admitted on 08/28/25 for hospice respite for his caregivers to get valeria rest. He stayed for 5 nights and will return home via ambulance today. Scooter has a chronic pressure ulcer, which has been on his left buttock for which he has received wound care. His tube feedings and free water have been continued via gravity during his respite stay as well as his medications. He continues to tolerate his tube feedings well. He has remained on bed rest while he has been at the hospital. He is incontinent of both urine and feces. At the time of discharge, he is lying in bed with HOB elevated, watching TV. He appears calm, does not appear to be in any distress. He makes eye contact. He is nonverbal. He will discharge back home with hospice services. No changes made to his medications. Home Meds and New Rx's Prescriptions: Continued morphine concentrate 100 mg/5 mL (20 mg/mL) solution See Rx Instructions PO Q1H MDD 120 mg PRN (Reason: pain) Qty: 30 0RF Rx Instructions: 0.25-1.0 ml orally every 1 hour PRN; HOSPICE lorazepam 1 mg tablet 1 mg PO Q4H PRN (Reason: anxiety, agitation, dyspnea) Qty: 10 5RF Rx Instructions: hospice glycopyrrolate 1 mg/5 mL (0.2 mg/mL) solution 1 mg feeding tube TID MDD 6 mg PRN (Reason: excessive salivation) Qty: 473 1RF Rx Instructions: hospice nystatin 100,000 unit/gram powder 1 applic topical QID PRN (Reason: skin irritation) Qty: 15 2RF Rx Instructions: hospice patient betamethasone valerate 0.1 % ointment 1 applic topical BID Qty: 45 4RF Rx Instructions: apply 1 inch to affected area/psoriasis BID acetaminophen 325 mg Tablet 650 mg UD Q4H PRN PRNQty: 0 0RF acetaminophen 650 mg Suppository 650 mg ND Q6H PRN PRNQty: 0 0RF baclofen 10 mg Tablet 40 mg UD TID Qty: 0 0RF bisacodyl 10 mg Suppository 10 mg ND BID PRN PRNQty: 0 0RF scopolamine base 1 mg over 3 days Patch 3 Day 1 mg transdermal Q72H PRN (Reason: secretions) Qty: 0 0RF loratadine 10 mg Tablet 10 mg UD DAILY Qty: 0 0RF escitalopram oxalate 20 mg Tablet 20 mg J-tube DAILY Qty: 0 0RF Discharge Instructions Instructions: Palliative Care Additional Instructions: Please call hospice with any questions or concerns. Stand Alone Forms: Nursing Discharge Form Activity:: Activity as Tolerated Equipment/Supplies:: No Equipment Needed Diet:: Other Discharge Orders Discharge Orders: Discharge Order (Routine); Ordered 09/02/25 Ordered By: Katt Mathis DS: Summary Time Spent with Patient providing and/or coordinating discharge services: Greater than 30 minutes Status at Discharge Functional status at discharge: bed bound Overall status at discharge: patient is back to baseline Mental Status: mental status grossly normal (At his baseline, ALS) Speech and Movement: other (At baseline, ALS) Mood: congruent mood Affect: normal affect (at baseline) Exam Narrative Exam Narrative: General: middle aged man, appears stated age, wearing glasses, does not appear to be in any distress. Nonverbal, makes eye contact. HEENT: atraumatic, +drooling, MMM Neck: no JVD Cardiovascular: heart sounds regular, nontachycardic. Respiratory: respirations appear even and unlabored at rest. GI: feeding tube in place. Ext: no edema, +foot drop bilaterally. Psych Mental Status: mental status grossly normal (At his baseline, ALS) Speech and Movement: other (At baseline, ALS) Mood: congruent mood Affect: normal affect (at baseline) DS: Data Vitals/I&O Vitals and I&O: Vital Signs Temperature 36.5 C 08/31/25 07:22 Temperature Source Temporal Artery Scan 08/31/25 07:22 Pulse 65 08/31/25 07:22 Pulse Rhythm Regular 08/28/25 18:47 Respiratory Rate 17 08/31/25 07:22 Respiratory Effort Grunting 08/28/25 18:47 Respiratory Depth Deep 08/28/25 18:47 Respiratory Pattern Normal 08/28/25 18:47 Blood Pressure 103/61 08/31/25 07:22 Blood Pressure Mean 75 08/31/25 07:22 Pulse Oximetry 96 08/31/25 07:22 Oxygen Delivery Method Room Air 08/31/25 07:22 Oxygen Flow Rate 0 08/31/25 07:22 Pain Level 0 09/01/25 08:45 Comment pt. refused vitals 09/01/25 19:37 Intake & Output 09/01/25 09/02/25 09/02/25 23:59 11:59 23:59 Intake Total 948 / 1896 Balance 948 / 1896 Intake: Intake, Tube Feeding Amount 948 / 1896 Other: Comment brief change PFSH All Active Problems Incontinent of urine (Acute) Incontinent of feces (Acute) Bedbound (Acute) Nonverbal (Chronic) due to ALS Drooling (Acute) Anxiety (Chronic) Pressure ulcer (Acute) Gastrostomy tube in place (Acute) Hospice care (Acute) ALS (amyotrophic lateral sclerosis) (Acute) Family History Mother Osteoarthritis Son No problems noted. Daughter No problems noted. Social History Smoking/Tobacco Use Status: Never Second Hand Exposure: No Smoking risk assessment performed?: Yes Alcohol Intake: former Drug use: Never Adopted: No Caregiver/Support person: Yes Household members: family Housing: assisted living facility Number of Children: 2 number of grandchildren: 0 Communication Needs: Language Barriers Education Level: college Do you need help understanding health information?: Often Pets and animals: Yes Pets and animals: cat(s) Sexually active: No Do you think of yourself as: straight/heterosexual Current gender identity: male What is your relationship status?: How often do you talk on the phone with friends or family?: never How often do you get together with friends or relatives?: once per week Do you belong to any clubs or organized social groups?: no Panel score (0-1 are the most socially isolated patients): 0 What type of physical activity do you participate in: none and restricted ROM & activity Special erick needs: No Working smoke detector in home: Yes Fire extinguisher in home: Yes Do you feel safe at home: Yes Do you feel safe in your relationship?: Yes Additional Social history: Lives with mother and stepfather. 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 Continues to work. Has 2 children, one son Sebastian graduated from college last year and works at same company where Scooter works, daughter Fany graduated this year. Important to him that he helps provide for them. Time Spent with Patient Time Spent with Patient: <45 minutes Time was spent: preparing to see the patient(eg.review tests), obtaining and/or reviewing separately otained hiistory, ordering medications,tests, procedures, referring, communicating with other health customer care team coach, counseling the patient and care coordination
[2025-09-02] MEDS: Loratidine 10 MG TAB UD (13:29)
[2025-09-02] MEDS: Escitalopram 20 MG TAB JT (13:29)
== END 2025-09-02 14:07 | disposition hospice, home (50) | DRG 57 ==
PROVIDERS: Admitting Provider Family Medicine; PCP Family Medicine; Visit Provider Family Medicine
DX: G12.21 Amyotrophic lateral sclerosis (principal); Z75.5 Holiday relief care; R15.9 Full incontinence of feces; R32 Unspecified urinary incontinence; Z74.01 Bed confinement status; K11.7 Disturbances of salivary secretion; F41.9 Anxiety disorder, unspecified; G47.01 Insomnia due to medical condition; Z93.1 Gastrostomy status; Z51.5 Encounter for palliative care; L89.329 Pressure ulcer of left buttock, unspecified stage
CPT/HCPCS: 00123